=== PATIENT | male | born 1960 | race Caucasian/White ===

== ENCOUNTER 2017-01-16 14:29 | Outpatient (CLI) | payer OTHER ==
[~2017-01-16] VITALS: Ht 160 cm; Wt 84.1 kg
[~2017-01-16 14:29] MED LIST: AMLO-147 PO; ASPI-664 PO; GLIP5TAB13 PO; HYD25 PO; METO-429 PO; OMEP20CA16 PO; SITA1TAB7 PO; TRAM50TA2 PO
[2017-01-16 14:39] VITALS: BP 176/94; PULSE 71; RESP 18; Ht 160 cm; Wt 84.1 kg
--- NOTE | 2017-01-16 16:27 | PN ---
Date/Time of Note Date/Time of Note DATE: 01/16/17 TIME: 16:18 Assessment/Plan Assessment/Plan Assessment/Plan [facility] Progress Note Date of Service: 01/16/17 Today's Impression & Plan: Overall doing well with stable hemangioma in segment 6 of the liver and no evidence of growth or change in gallbladder small polyp as shown on CT abd/ pelvis 12/25/16. No indication for acute surgical intervention. With careful f/u and demonstrated stability since Jul 2015, I do not see need for further scheduled imaging. Patient can be followed symptomatically. With above assessment, I've recommended the following for today: 1. F/u with PCP 2. F/u with us prn 3. Symptomatic f/u for liver or GB Thank you again for your great care of this very pleasant patient and wonderful family. If there are any questions, please feel free to call me at [phone]. TOTAL VISIT TIME: 20 minutes of which more than half was spent in [id number] discussion with the patient, possibly including family, as well as coordination of care between multiple physicians and providers. Disclaimer: Inadvertent spelling or grammatical errors are likely due to EHR/ dictation software use and do not reflect on the overall quality of patient care. Updated Clinical Summary: A very pleasant 55-year-old gentleman well known to me from initial visit on , with past medical history significant for diabetes, hypertension, hyperlipidemia, and gastroesophageal reflux disease, who presented initially with a few month history of right upper quadrant and mid upper quadrant abdominal pain associated with and no nausea or vomiting. He reported having intermittent right back flank pain as well. Some relation to food intake and no prior similar symptoms in the past. His weight had been stable. He was evaluated on a vacation trip to [place] and was found to have a 3-4 cm lesion in segment 8 of his liver that appeared to be a hemangioma. He also had right upper quadrant ultrasound in the past that showed polyps within the gallbladder wall which were all under 1 cm and appeared otherwise benign. A few were noted ( 2-3). No major stones found in the gallbladder and no wall thickening. Interestingly, in [place], the patient was told that he needed to have urgent surgery but he refused since he wanted to get his care in [place]. Patient was initially referred to us for further management in Oct 2015. At that time, I recommended upper and lower GI for completion of the workup and counselled the patient that his liver lesion is most likely a hemangioma that is unlikely to be the cause of his symptoms. Stable hemangioma in segment 6 of the liver and no evidence of growth or change in gallbladder small polyp as shown on CT abd/pelvis 12/25/16 Comorbidities: 1. Hypertension 2. Diabetes mellitus 3. Hyperlipidemia 4. Gastroesophageal reflux disease 5. History of known liver lesion as early as August 2008 where an abdominal ultrasound showed a 6.3 cm hypoechoic solid appearing mass within the peripheral right lobe of the liver which was thought to be of uncertain etiology. At that time, the reading was that this does not have the typical imaging characteristics of a hemangioma. CT scan was recommended. Multiple gallbladder polyps measuring up to 7 mm were also noted. CT scan November 2008 showed 6.2 cm low density mass in the posterior segment of the right lobe of the liver with the appearance that is most consistent with a large intrahepatic hemangioma. 6. Paroxysmal nocturnal dysuria and orthopnea 7. Insomnia 8. Obesity with BMI 34.1 Subjective: No major events or complaints; no abd pain and not on any pain medications; no n /v/d; no sob or cp; + flatus; + BM and normal; + activity Objective: Vitals: See below Exam: GENERAL: On exam, the patient was sitting in a chair and appeared to be comfortable and in no acute distress. ABDOMEN: Soft, nontender and nondistended. There are no peritoneal signs or guarding. SKIN: Skin appears to be pink and feels warm to touch. NEUROLOGIC: Patient is awake, alert, and follows commands appropriately. Exam/Review of Systems Vital Signs Vitals Vital Signs Date Time Temp Pulse Resp B/P Pulse Ox O2 Delivery O2 Flow Rate FiO2 01/16/17 14:39 98.5 71 18 176/94 97 Room Air RADHA GAVIN M.D. Jan 16, 2017 16:27
== END 2017-01-16 16:54 | disposition home or self-care (01) ==
LOC: HPC 14:29
PROVIDERS: ATTEND Transplant Surgery
DX: D18.03 Hemangioma of intra-abdominal structures (principal); K82.4 Cholesterolosis of gallbladder; I10 Essential (primary) hypertension; E11.9 Type 2 diabetes mellitus without complications; E78.5 Hyperlipidemia, unspecified; K21.9 Gastro-esophageal reflux disease without esophagitis; R30.0 Dysuria; R06.01 Orthopnea; G47.00 Insomnia, unspecified; E66.9 Obesity, unspecified; Z68.34 Body mass index [BMI] 34.0-34.9, adult
CPT/HCPCS: G0463